=== PATIENT | female | born 1965 | race Caucasian/White ===

== ENCOUNTER 2024-11-18 17:02 | Emergency (ER) | payer MEDICARE, SELFPAY ==
--- NOTE | ~2024-11-18 | CT_ITS ---
EXAMINATION: CT abdomen pelvis w con DATE: 11/18/2024 22:48 INDICATION: abd pain, hx of diverticulitis TECHNIQUE: Computed tomography (CT) of the abdomen and pelvis was performed with 100 mL Omnipaque-350 intravenous contrast. Automated exposure control and iterative reconstruction technique were employe d. The dose-length product was 266.20 mGy-cm. COMPARISON: None. FINDINGS: Lower thorax: Subpleural air cysts and reticular opacities. Bibasilar scarring. Mild coronary artery calcification. Liver: Simple left lobe cyst. Additional subcentimeter hypodensities, too small to characterize but l ikely represent cysts or hemangiomas.. Biliary/Gallbladder: Gallbladder is absent. Mild extra hepatic duct dilation likely secondary to chol ecystectomy. Pancreas: No mass or duct dilation. Spleen: Normal. Adrenals:No mass. Kidneys: No suspicious mass, obstructing stone, or hydronephrosis. Simple cysts and subcentimeter hyp odensities that are too small to characterize but most likely represent cysts. GI tract: Mild distal esophageal and antral wall edema. No small or large bowel dilation. Normal appe ndix. Mesentery/Peritoneum: No ascites, mass, or free air. Retroperitoneum: No mass. Atherosclerotic calcifications of intra-abdominal arterial vessels. Pelvis: Normal urinary bladder. Absent uterus. Ovaries not confidently identified.. Soft Tissues: Soft tissues and body wall unremarkable. Bones: No acute osseous finding. IMPRESSION: Mild emphysematous/interstitial change in the lung bases. Mild esophagitis and antral gastritis. Unremarkable CT abdomen and pelvis findings. Reviewed, dictated and finalized at location K.
[2024-11-18 17:37] VITALS: BP 117/81; PULSE 81; RESP 20; TEMP 36.6; O2SAT 96
--- NOTE | 2024-11-18 21:48 | ED_ITS ---
HPI - Abdominal Pain General Chief Complaint: Abdominal Pain <Abdi Arcenio Beltre III, DO - Last Filed: 11/27/24 13:39> Stated Complaint: abd pain <Abdi Arcenio Beltre III, DO - Last Filed: 11/27/24 13:39> Time Seen by Provider: 11/18/24 21:41 <Abdi Acrenio Beltre III, DO - Last Filed: 11/27/24 13:39> History of Present Illness HPI narrative: Pt presents with intermittent LLQ abdominal pain for 3 years but getting more frequent and more severe for last 3 months. Pt also complains of rovign pain intermittently in knees and legs. Pt denies CP or SOB. Pt had hysterectomy and oophorectomy years ago due to having cancerous cells (not sure if uterus or ovaries). Pt denies urinary symptoms. <Abdi Arcenio Beltre III, DO - Last Filed: 11/27/24 13:39> Related Data Allergies/Adverse Reactions: Allergies Allergy/AdvReac Type Severity Reaction Status Date / Time adhesive tape Allergy Rash Verified 11/18/24 17:43 <Abdi Arcenio Beltre III, DO - Last Filed: 11/27/24 13:39> Review of Systems 2 Review of Systems: All systems reviewed & are unremarkable except as noted in HPI and below <Abdi Arcenio Beltre III, DO - Last Filed: 11/27/24 13:39> Exam 2 Const: General: healthy appearing and no acute distress <Abdi Arcenio Beltre III, DO - Last Filed: 11/27/24 13:39> Nutritional Appearance: well nourished <Abdi Arcenio Beltre III, DO - Last Filed: 11/27/24 13:39> Orientation/consciousness: patient oriented x3 <Abdi Arcenio Beltre III, DO - Last Filed: 11/27/24 13:39> Limitations: no limitations <Abdi Arcenio Beltre III, DO - Last Filed: 11/27/24 13:39> Resp: Effort & Inspection: normal respiratory effort <Abdi Arcenio Beltre III, DO - Last Filed: 11/27/24 13:39> Auscultation: clear to auscultation bilaterally <Abdi Arcenio Beltre III, DO - Last Filed: 11/27/24 13:39> Cardio: Rate: regular rate <Abdi Arcenio Beltre III, DO - Last Filed: 11/27/24 13:39> Rhythm: regular rhythm <Abdi Arcenio Beltre III, DO - Last Filed: 11/27/24 13:39> GI: GI Palp: Yes Soft to palpation and Yes Tenderness to palpation present (GI) (llq mild no mass) <Abdi Arcenio Beltre III, DO - Last Filed: 11/27/24 13:39> Auscultation: normal bowel sounds <Abdi Arcenio Beltre III, DO - Last Filed: 11/27/24 13:39> Back/Spine/Pelvis: Back: no CVA tenderness <Abdi Arcenio Beltre III, DO - Last Filed: 11/27/24 13:39> Skin: General skin exam: normal color <Abdi Arcenio Beltre III, DO - Last Filed: 11/27/24 13:39> Rashes: no rashes <Abdi Arcenio Beltre III, DO - Last Filed: 11/27/24 13:39> Wounds: no wounds <Abdi Arcenio Beltre III, DO - Last Filed: 11/27/24 13:39> Neuro: General: patient oriented x3, moves all extremities and no focal motor deficits <Abdi Arcenio Beltre III, DO - Last Filed: 11/27/24 13:39> Speech: normal speech <Abdi Arcenio Beltre III, DO - Last Filed: 11/27/24 13:39> Extrem: General: normal to inspection and no clubbing, cyanosis or edema < Abdi Arcenio Beltre III, DO - Last Filed: 11/27/24 13:39> Psych: Mental Status: mental status grossly normal <Abdi Arcenio Beltre III, DO - Last Filed: 11/27/24 13:39> Affect: normal affect <Abdi Arcenio Beltre III, DO - Last Filed: 11/27/24 13:39> Attitude: cooperative <Abdi Arcenio Beltre III, DO - Last Filed: 11/27/24 13:39> Course Vital Signs Vital signs: Vital Signs Temperature 97.9 F 11/18/24 17:37 Pulse Rate 81 11/18/24 17:37 Respiratory Rate 20 11/18/24 17:37 Blood Pressure 117/81 11/18/24 17:37 Pulse Oximetry 96 11/18/24 17:37 Oxygen Delivery Room Air 11/18/24 17:37 Temperature 97.9 F 11/18/24 17:37 Pulse Rate 76 11/18/24 23:38 Respiratory Rate 17 11/18/24 23:38 Blood Pressure 122/83 11/18/24 23:38 Pulse Oximetry 98 11/18/24 23:38 Oxygen Delivery Room Air 11/18/24 17:37 <Abdi Beltre III, DO - Last Filed: 11/27/24 13:39> Vital Signs Temperature 97.9 F 11/18/24 17:37 Pulse Rate 81 11/18/24 17:37 Respiratory Rate 20 11/18/24 17:37 Blood Pressure 117/81 11/18/24 17:37 Pulse Oximetry 96 11/18/24 17:37 Oxygen Delivery Room Air 11/18/24 17:37 Temperature 97.9 F 11/18/24 17:37 Pulse Rate 76 11/18/24 23:38 Respiratory Rate 17 11/18/24 23:38 Blood Pressure 122/83 11/18/24 23:38 Pulse Oximetry 98 11/18/24 23:38 Oxygen Delivery Room Air 11/18/24 17:37 <Roly Oates MD - Last Filed: 11/18/24 23:19> MDM - Abdominal Pain MDM Narrative Medical decision making narrative: Pt presents with intermittent pain in LLQ for 3 years but worse and more frequent last 3 months. Pt has hysterectomy and b/l oophorectomy years ago for cancerous cells and is worried about recurrence. will get labs, ua, and CT abd and pelvis to rule out cancer among other things. will turn over to Dr Oates at 2200 awaiting work up. <Abdi Beltre III, DO - Last Filed: 11/27/24 13:39> Pt presents with intermittent pain in LLQ for 3 years but worse and more frequent last 3 months. Pt has hysterectomy and b/l oophorectomy years ago for cancerous cells and is worried about recurrence. will get labs, ua, and CT abd and pelvis to rule out cancer among other things. will turn over to Dr Oates at 2200 awaiting work up. Patient was signed out to me by Dr. Beltre pending CT abdomen pelvis with IV contrast. Patient's blood work did not reveal any acute process. Urinalysis revealed 4+ bacteria and 6-10 white blood cells however patient denies any urinary symptoms therefore will not be treating this patient is asymptomatic bacteria. CT abdomen and pelvis was obtained and revealed esophagitis/gastritis otherwise no acute process. Patient does admit to history of acid reflux. She was informed that she will be provided with a GI referral and instructed to call to set up a follow-up appointment. Provided with strict return precautions and instructed return to the ED if any new or worsening symptoms develop. She was discharged home in stable condition. <Roly Oates MD - Last Filed: 11/18/24 23:19> Differential Diagnosis Differential diagnosis: Likely abdominal pain, constipation, diverticulitis and small bowel obstruction <Abdi Beltre III, DO - Last Filed: 11/27/24 13:39> Lab Data Result diagrams: 11/18/24 22:09 11/18/24 22:09 <Abdi Beltre III, DO - Last Filed: 11/27/24 13:39> Labs: Lab Results 11/18/24 11/18/24 Range/Units 22:09 22:15 WBC 8.7 (4.5-10.0) K/mm3 RBC 5.77 H (4.2-5.4) M/mm3 Hgb 17.2 H (12.0-15.0) g/dL Hct 51.4 H (37.0-47.0) % MCV 89.1 (80-100) fl MCH 29.8 (26-34) pg MCHC 33.5 (32-36) g/dl RDW 12.6 (11.5-14.5) % Plt Count 268 (150-375) k/mm3 MPV 11.0 H (7.4-10.4) fl Immature Gran % (Auto) 0.3 (0-0.5) % Neut % (Auto) 57.9 (45.5-73.1) % Lymph % (Auto) 31.3 (18.3-44.2) % [place] % (Auto) 8.4 (2.6-8.5) % Eos % (Auto) 1.5 (0-4.4) % Baso % (Auto) 0.6 (0.2-1.2) % Lymph # (Auto) 2.71 (0.9-3.2) K/mm3 [place] # (Auto) 0.7 H (0.1-0.6) K/mm3 Eos # (Auto) 0.1 (0-0.3) K/mm3 Baso # (Auto) 0.1 (0.0-0.1) K/mm3 Abs Immat Gran (auto) 0.03 (0.00-0.031) K/mm3 Absolute Neuts (auto) 5.0 (1.3-6.7) K/mm3 Absolute Nucleated RBC 0.000 (0.0-0.012) K/mm3 Nucleated RBC % 0.0 (0.0-0.2) % Sodium 138 (137-145) mmol/L Potassium 4.7 (3.4-5.0) mmol/L Chloride 105 (98-107) mmol/L Carbon Dioxide 20 L (22-30) mmol/L Anion Gap 13 H (4-12) mmol/L BUN 12 (7-17) mg/dL Creatinine 0.68 L (0.7-1.0) mg/dL Estim Creat Clear Calc 73 ml/min Estimated GFR > 60 (59 - ) Glucose 81 (65-110) mg/dL Calcium 10.2 (8.4-10.2) mg/dL Magnesium 2.2 (1.6-2.3) mg/dL Total Bilirubin 0.8 (0.2-1.3) mg/dL AST 31 (14-36) U/L ALT 23 (6-35) U/L Alkaline Phosphatase 107 (38-126) U/L Total Protein 7.7 (6.3-8.2) g/dL Albumin 4.8 (3.5-5.1) g/dL Lipase 73 (23-300) U/L Urine Color Yellow (Yellow) Urine Appearance Cloudy H (Clear) Urine pH 7.0 (5.0-9.0) Ur Specific [place] 1.016 (1.001-1.035) Urine Protein Negative (Negative) mg/dL Urine Glucose (UA) Negative (Negative) mg/dL Urine Ketones Negative (Negative) mg/dL Ur Blood (Man) Negative (Negative) Urine Nitrate Negative (Negative) Urine Bilirubin Negative (Negative) Urine Urobilinogen 1.0 (<2.0) mg/dL Leukocyte Esterase Rfl Trace H (Negative) NICOLE/UL Urine RBC 0-2 (0-2) /hpf Urine WBC 6-10 H (0-3) /hpf Ur Squamous Epith Cells Moderate (Few) /hpf Urine Bacteria 4+ H /hpf Urine Casts 0-2 POC Urine HCG, Qual Negative (Negative) <Abdi Arcenio Hwangver III, DO - Last Filed: 11/27/24 13:39> Lab Results 11/18/24 11/18/24 Range/Units 22:09 22:15 WBC 8.7 (4.5-10.0) K/mm3 RBC 5.77 H (4.2-5.4) M/mm3 Hgb 17.2 H (12.0-15.0) g/dL Hct 51.4 H (37.0-47.0) % MCV 89.1 (80-100) fl MCH 29.8 (26-34) pg MCHC 33.5 (32-36) g/dl RDW 12.6 (11.5-14.5) % Plt Count 268 (150-375) k/mm3 MPV 11.0 H (7.4-10.4) fl Immature Gran % (Auto) 0.3 (0-0.5) % Neut % (Auto) 57.9 (45.5-73.1) % Lymph % (Auto) 31.3 (18.3-44.2) % [place] % (Auto) 8.4 (2.6-8.5) % Eos % (Auto) 1.5 (0-4.4) % Baso % (Auto) 0.6 (0.2-1.2) % Lymph # (Auto) 2.71 (0.9-3.2) K/mm3 [place] # (Auto) 0.7 H (0.1-0.6) K/mm3 Eos # (Auto) 0.1 (0-0.3) K/mm3 Baso # (Auto) 0.1 (0.0-0.1) K/mm3 Abs Immat Gran (auto) 0.03 (0.00-0.031) K/mm3 Absolute Neuts (auto) 5.0 (1.3-6.7) K/mm3 Absolute Nucleated RBC 0.000 (0.0-0.012) K/mm3 Nucleated RBC % 0.0 (0.0-0.2) % Sodium 138 (137-145) mmol/L Potassium 4.7 (3.4-5.0) mmol/L Chloride 105 (98-107) mmol/L Carbon Dioxide 20 L (22-30) mmol/L Anion Gap 13 H (4-12) mmol/L BUN 12 (7-17) mg/dL Creatinine 0.68 L (0.7-1.0) mg/dL Estim Creat Clear Calc 73 ml/min Estimated GFR > 60 (59 - ) Glucose 81 (65-110) mg/dL Calcium 10.2 (8.4-10.2) mg/dL Magnesium 2.2 (1.6-2.3) mg/dL Total Bilirubin 0.8 (0.2-1.3) mg/dL AST 31 (14-36) U/L ALT 23 (6-35) U/L Alkaline Phosphatase 107 (38-126) U/L Total Protein 7.7 (6.3-8.2) g/dL Albumin 4.8 (3.5-5.1) g/dL Lipase 73 (23-300) U/L Urine Color Yellow (Yellow) Urine Appearance Cloudy H (Clear) Urine pH 7.0 (5.0-9.0) Ur Specific [place] 1.016 (1.001-1.035) Urine Protein Negative (Negative) mg/dL Urine Glucose (UA) Negative (Negative) mg/dL Urine Ketones Negative (Negative) mg/dL Ur Blood (Man) Negative (Negative) Urine Nitrate Negative (Negative) Urine Bilirubin Negative (Negative) Urine Urobilinogen 1.0 (<2.0) mg/dL Leukocyte Esterase Rfl Trace H (Negative) NICOLE/UL Urine RBC 0-2 (0-2) /hpf Urine WBC 6-10 H (0-3) /hpf Ur Squamous Epith Cells Moderate (Few) /hpf Urine Bacteria 4+ H /hpf Urine Casts 0-2 POC Urine HCG, Qual Negative (Negative) <Roly Oates MD - Last Filed: 11/18/24 23:19> Imaging Data Radiologist's impression: ITS Impressions Abdomen/Pelvis CT 11/18/24 22:49 IMPRESSION: Mild emphysematous/interstitial change in the lung bases. Mild esophagitis and antral gastritis. Unremarkable CT abdomen and pelvis findings. <Abdi Arcenio Beltre III, DO - Last Filed: 11/27/24 13:39> ITS Impressions Abdomen/Pelvis CT 11/18/24 22:49 IMPRESSION: Mild emphysematous/interstitial change in the lung bases. Mild esophagitis and antral gastritis. Unremarkable CT abdomen and pelvis findings. <Roly Oates MD - Last Filed: 11/18/24 23:19> Discharge Plan Discharge Clinical Impression: Abdominal pain <Abdi Arcenio Beltre III, DO - Last Filed: 11/27/24 13:39> Patient Disposition: Home <Abdi Arcenio Beltre III, DO - Last Filed: 11/27/24 13:39> Condition: Improved <Abdi Arcenio Beltre III, DO - Last Filed: 11/27/24 13:39> Instructions: Antibiotic Form <Abdi Arcenio Beltre III, DO - Last Filed: 11/27/24 13:39> Additional Instructions: Please follow-up with the GI doctor you were provided with today within the next 3-5 days. Return to the ED if any new or worsening symptoms develop. <Abdi Arcenio Beltre III, DO - Last Filed: 11/27/24 13:39> Patient Language: Upper Sorbian <Abdi Arcenio Beltre III, DO - Last Filed: 11/27/24 13:39> Follow-up/Referrals: Stephany,MD Damien [Primary Care Provider] - Felice Marshall MD [Physician] - 3 Days <Abdi Arcenio Beltre III, DO - Last Filed: 11/27/24 13:39> Time of Disposition: 23:16 <Abdi Arcenio Beltre III, DO - Last Filed: 11/27/24 13:39> 23:16 <Roly Oates MD - Last Filed: 11/18/24 23:19>
[2024-11-18 22:17] LABS: BEDSIDEPREGUCG Negative (Negative)
[2024-11-18 22:18] LABS: Hematocrit 51.4 % (37.0-47.0); Hemoglobin 17.2 g/dL (12.0-15.0); Immature Granulocyte Percent A 0.3 % (0-0.5); Lymphocytes Absolute Auto 2.71 K/mm3 (0.9-3.2); Mean Corpuscular HGB Conc 33.5 g/dl (32-36); Mean Corpuscular Hemoglobin 29.8 pg (26-34); Mean Corpuscular Volume 89.1 fl (80-100); Nucleated Red Blood Cells Absolute Auto 0.000 K/mm3 (0.0-0.012); Nucleated Red Blood Cells Perc 0.0 % (0.0-0.2); Platelet Count Result 268 k/mm3 (150-375); Red Blood Count 5.77 M/mm3 (4.2-5.4); White Blood Count 8.7 K/mm3 (4.5-10.0)
--- OUTSIDE RECORDS SUMMARY | 2024-11-18 22:18 | XMS_ITS | Data Portability ---
Author Organization [facility] [employer], Main Office Address [address] [place] [address] Assessment No assessment recorded. Plan of Treatment Reminders Order Date Submit Date Provider Last Modified By Organization Details Last Modified Time Details Appointments Any 15 2024 09:30A M Damien glavin MD Not available Not available Not available Lab lipid panel, serum [address] (Lab), [address] [place], [address], 11/12/2024 10:58:21 CBC w/ auto diff [address] (Lab), [address] [place], [address], 11/12/2024 10:58:33 TSH, serum or plasma [address] (Lab), [address] [place], [address], 11/12/2024 10:58:42 CMP, serum or plasma [address] (Lab), [address] [place], [address], 11/12/2024 10:58:51 vitamin D, 25-hydrox y, total, serum [address] (Lab), [address] [place], [address], 11/12/2024 10:58:59 Referral orthopedi c surgeon referral - Please call patient to schedule an appointme nt. Thank you. 2024 025 [email or web address] Heber Krishna MD, [address] [facility], [place], [address], 11/05/2024 17:23:10 podiatris t referral - Please call patient to schedule an appointme nt. Thank you. 2024 025 [email or web address] Byrd DPM, [address], [address], [place], [address], 11/06/2024 08:20:40 pulmonolo gist referral - Please call patient to schedule an appointme nt. Thank you. 2024 025 [email or web address] Hua Holden MD, [address] [facility], [place], [address], 11/11/2024 09:51:58 gynecolog ist referral - Please call patient to schedule an appointme nt. Thank you. 2024 025 MIGEL Rudolph MD, [address] [facility] [address], [address], [place], [address], 11/05/2024 17:25:44 Procedures colonosco py screening (PROC) - Please call patient to schedule an appointme nt. Thank you. 2024 025 MIGEL Patrick MD, [address], [address], [place], [address], 11/11/2024 09:53:25 Surgeries None recorded. Imaging MAMMO, screening , digital, bilateral - Please call patient to schedule. 2024 025 [facility], [address], [address], [place], [address], 11/04/2024 14:25:56 DEXA, axial skeleton - Please call patient to schedule. 2024 025 [facility], [address], [address], [place], [address], 11/04/2024 14:27:48 LDCT, chest, for lung cancer screening - Please call patient to schedule. 2024 025 [email or web address] [facility], [address], [address], [place], [address], 11/04/2024 14:31:36 Medication Orders albuterol sulf 90 mcg/actua tion breath activated powder inhaler,s ensor 2024 025 [email or web address] [id number], [address] , [place], [place], [id number], 11/12/2024 17:08:50 Patient TargetsNo targets recorded. Patient InstructionsNo instructions recorded. 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 Thank you. Referring Physician: Damien Hammond, Internal Medicine, Encounter Date: 11/04/2024 Mitochondrial Disorders Counselor Referral for C hronic obstructive pulmonary disease Please call patient to schedule an appointment. Thank you. Referring Physician: Damien Hammond, Internal Medicine, Encounter Date: 11/04/2024 Orthopedic Surgeon Referral for Pain of hip region Please call patient to schedule an appointment. Thank you. Referring Physician: Damien Hammond, Internal Medicine, Encounter Date: 11/04/2024 Parts Salesperson Referral for Pain of left heel Please call patient to schedule an appointment. Thank you. Referring Physician: Damien Hammond, Internal Medicine, Encounter Date: 11/04/2024 Problems Name Problem SNOMED Code Status Onset Date Resolution Date Notes Provider Name and Address Organization Details Recorded Time Vitamin D below reference range 807242761 Active 2024 Damien galvin MD [address] [place], [place] [address], [address], [place], [address], [employer] [facility] 11:48:09 Cigarette smoker 63749000 Active 2024 Damien galvin MD [address], [address], [place], [address], [employer] [facility] 10:14:45 Chronic obstructive pulmonary disease 04827861 Active 2024 Damien galvin MD [address], [address], [place], [address], [employer] [facility] [employer] [facility] 10:15:05 Pain of hip region 07012760 Active 2024 Damien galvin MD [address], [address], [place], [address], [employer] [facility] [facility] 10:30:14 Pain of left heel 2885043918362 109 Active 2024 Damien galvin MD [address], [address], [place], [address], [employer] [facility] [facility] 10:30:43 Problem Notes None recorded. Procedures Surgical History Date Name Laterality Status Provider Name and Address Organization Details Recorded Time Brain Surgery completed CYRIL Angulo Cesar [facility] 11/04/2024 10:04:48 dilation and curettage completed CYRIL Angulo Cesar [facility] 11/04/2024 10:05:14 section completed CYRIL Angulo Cesar [facility] 11/04/2024 10:05:27 operation on stomach completed CYRIL Angulo Cesar [facility] 11/04/2024 10:05:50 hysterectomy completed CYRIL Angulo Cesar [facility] 11/04/2024 10:06:30 Imaging Results None recorded. Procedure Notes None recorded. Medical Equipment None Reported. Allergies Allergen ID Allergen Name Allergen Category Reaction Reaction Severity Criticality Documentation Date Start Date Code Code System Note Provider Name and Address Organization Details Recorded Time 50963 adhesive tape environme nt,medica tion rash moderate low 11/04/2024 75181 UNK CYRIL Angulo [employer] [facility] [employer] 09:59:45 Medications Name Sig Start Date Stop Date Status Note LastModified by Organization Details LastModified Time albuterol sulfate 90 mcg/actuat ion breath activated powder inhaler Inhale 2 puffs every 4 hours by inhalation route as needed 2024 active Not Available Not Available Not Avai lable albuterol sulf 90 mcg/actuat ion breath activated powder inhaler,se nsor Inhale 2 puffs every 4 hours by inhalation route as needed for 90 days. 11/12 completed Not Available Not Available Not Available Vitals Date Recorded Body height Body mass index (BMI) Body weight Body temperature Heart rate Oxygen saturation Oxygen saturation in Arterial blood by Pulse oximetry Systolic And Diastolic Provider Name and Address Organization Details Last Updated DateTime 5 167.64 cm 20.7 kg/m2 01118.8 2 g 97.5 [degF] 95 /min 96 % 96 % 118/80 mm[Hg] Roxanna Campbell MA [employer] 09:57:35 Social History Question Answer Notes LastModified by Organizat [employer] Details LastModified Time Tobacco Smoking Status Current Every Day Smoker CYRIL Angulo [employer] 11/04/2024 10:03:16 What Is Your Level Of Caffeine Consumption? Heavy Information not available 11/04/2024 In The 14 Days Before Symptom Onset, Have You Had Close Contact With A Laboratory-confi rmed COVID-19 While That Case Was Ill? No Information not available 11/04/2024 In The 14 Days Before Symptom Onset, Have You Had Close Contact With A Person Who Is Under Investigation For COVID-19 While That Person Was Ill? No Information not available 11/04/2024 What Type Of Diet Are You Following? REGULAR Information not available 11/04/2024 Have There Been Any Changes To Your Family Or Social Situation? No Information not available 11/04/2024 Do You Use Insect Repellent Routinely? No Information not available 11/04/2024 Where Do You Live? [facility] Information not available 11/04/2024 What Was The Date Of Your Most Recent Tobacco Screening? 11/04/2024 Information not available 11/04/2024 How Many Children Do You Have? 2 Information not available 11/04/2024 What Is Your Current Pack Years? 10-19packyears Information not available 11/04/2024 Do You Have Any Pets? Yes Information not available 11/04/2024 What Is Your Relationship Status? Information not available 11/04/2024 Do You Use Your Seat Belt Or Car Seat Routinely? Yes Information not available 11/04/2024 Do You Have Smoke And Carbon Monoxide Detectors In Your Home? Yes Information not available 11/04/2024 At What Age Did You Start Smoking Tobacco? 13 Information not available 11/04/2024 Are You Passively Exposed To Smoke? Yes Information not available 11/04/2024 Are There Any Smokers In Your House? Yes Information not available 11/04/2024 How Much Tobacco Do You Smoke? 0.25 PPD Information not available 11/04/2024 Do You Use Sunscreen Routinely? No Information not available 11/04/2024 How Many Years Have You Smoked Tobacco? 46 Information not available 11/04/2024 Have You Recently Traveled Abroad? No Information not available 11/04/2024 Do You Have Any Dietary Restrictions? No Information not available 11/04/2024 Sex: Unknown Functional Status Question Answer Note LastModified by Organizat ion Details LastModified Time Do you use any illicit or recreational drugs? No Information not available 11/04/2024 Do you or have you ever used any other forms of tobacco or nicotine? No Information not available 11/04/2024 What is your level of alcohol consumption? None Information not available 11/04/2024 Are you currently employed? No disabled Information not available 11/04/2024 What is your exercise level? Moderate Information not available 11/04/2024 Mental Status Question Answer Note LastModified by Organization D etails LastModified Time Do you feel stressed (tense, restless, nervous, or anxious, or unable to sleep at night)? [id number] Information not available 11/04/2024 Family History Relationship Description Onset Age of this Age Resolved Age Notes LastModified by Organization Details LastModified Time Mother Malignant lymphoma [email or web address] Not available 2024 10:00:47 Brother Hypertensive disorder [email or web address] Not available 2024 10:01:04 Sister Hypertensive disorder [email or web address] Not available 2024 10:01:10 Sister Malignant neoplasm of bone [email or web address] Not available 2024 10:01:21 Sister Malignant neoplasm of lung [email or web address] Not available 2024 10:01:33 Sister Malignant neoplasm of brain [email or web address] Not available 2024 10:01:46 Father Diabetes mellitus [email or web address] Not available 2024 10:01:57 Father Hypertensive disorder [email or web address] Not available 2024 10:02:07 Medical History No medical history recorded. Gynecological History Statement/Question Response How many live births 2 Date of Last Colonoscopy Date of Last Mammogram Date of LMP Most Recent Bone Density Date of Last Pap Current Control Method Hysterectom y Obstetrics History GPAL:G 4 P 2 0 2 2 Type Value Multiple Births 0 Full Term 2 Induced 0 Spontaneous 2 Premature 0 Living 2 Ectopics 0 Total 4 Past Encounters Encounter ID Performer Location Encounter Start Date Encounter Closed Date Diagnosis/Indication Diagnosis SNOMED-CT Code Diagnosis ICD10 Code Diagnosis Note [id number] Damien esposito MD [facility] [address] [place] [address] 11/04/2024 09:48:21 11/04/2024 10:38:52 Screening due 601551332 Z13.9 C-scope: get this done Mammogram: get this doneDEXA: Get this doneWWE: Get this one Get yearly flu shot, can do Tdap if not done, can do Shingrix vaccineCan do prevnar #20 RTC in 3 months, do labs, ER if worse, she is very appreciati ve to this plan of care Screening for malignant neoplasm of colon 132537583 Z12.11 Screening mammography 24 119335 Z12.31 Postmenopausal state 764 99606 Z78.0 Well woman health examination 182194612 Z01.419 Hyperlipid emia screening 242261395 Z13.220 Get labs Vitamin D below reference range 332046351 R79.89 Cigarette smoker 8277900 7 F17.210 Advised to quit! counselled on risks for smokingGet LDCTShe does c/o occasional SOB and TUCKER Chronic ob structive pulmonary disease 11961045 J44.9 On albuterol as neededHx of smokingAdv ised to quit!Agree able to see pulmonary Pain of hip region 07255 002 M25.552 Needs to see ortho Pain of left heel 518432 3542 824036 M79.672 Get a referral to podiatry Health Concerns Section Related Observation LastModified by Organization Detai ls LastModified Time None Recorded Concern Status LastModified by Organization Details LastModified Time None Recorded Advance Directives Directive None Recorded Payers Insurance Date Sequence Insurance Name Policy Number Policy Zhang Covered Member ID Zhang Member ID Guarantor Name 11/06/2024 1 [facility] (MEDICARE REPLACEMENT/A DVANTAGE - HMO) [id number] Lexis Velazco [id number] Lexis Velazco Notes Date Note Type Note Provider Name and Address Organization Details Recorded Time 11/04/2024 text/html OV 11/04/2024: Here to establish care Present Hx:COPDSmokingL hip pain that radiates into the L back and L lower groin area Here to discuss above and to also get labs Damien Hammond MD [address] [facility], [facility] [address], [place], [address], [place] [facility] [employer] 11/04/2024 10:56:33 OBGyn Episode No OBEpisode recorded.
--- OUTSIDE RECORDS SUMMARY | 2024-11-18 22:18 | XMS_ITS | Continuity of Care Document ---
Author Organization [facility] Address [address] [facility] [address] [place] [address] Phone Care Team Providers Care Clinical Program Director Name Role Phone Shreyas FREEMAN MD, Donovan Unavailable Unavailab le Advance Directives Directive Yes / No Effective Date File Name No Information Encounters Encounter Description Practice Location Reason(s) For Visit Diagnoses Date Provider Providers Copied on Encounter [facility], [address] [facility] [address], [place], [place], [id number], [place] tel:[phone] [facility] No Information 3 Shreyas Man. [address] [facility], [address], [place], [place], [id number] , [place]. tel: [phone] Family History Family Member Type Diagnosis Age [...]
--- OUTSIDE RECORDS SUMMARY | 2024-11-18 22:18 | XMS_ITS | Patient Health Record ---
Author Organization [facility] ie Address [address] [facility] [address] [place], [place] [id number] Support Name Relationship Address Phone Lexis Velazco Guarantor Unknown [phone] Allergies No Known Allergies Reason For Referral No Information Social History Tobacco Use: Social History Observation Description Date Details (start date - stop date) Current Smoker 09/06/1989 - NA Tobacco Use/Smoking Question Answer Notes Tobacco use: current smoker When did you start smoking? 09/06/1989 How often do you smoke cigarettes? every day How many cigarettes a day do you smoke? 11-20 How soon after you wake up do you smoke your fir st cigarette? 6-30 minutes Are you interested in quitting? Not ready to alma t Alcohol Screen (Audit-C) Question Answer Notes Did you have a drink contain ing alcohol in the past year? Yes How often did you have a dri nk containing alcohol in the past year? 2 to 4 times a month (2 points) How many drinks did you have on a typical day when you were drinking in the past year? 1 or 2 drinks (0 point) How often did you have 6 or more drinks on one occasion in the past year? Never (0 point) Points 2 Interpretation Negative Sexual History Question Answer Notes Had sex in the past 12 months (vaginal, oral, or anal)? Yes with Men only Have you ever had a Sexually transmitted disease ? Yes Herpes? Yes Plan Of Treatment Pending Test Test Name Order Date Urinalysis, Routine 09/06/2021 TSH 09/06/2021 CBC With Differential/Platelet 2 Vitamin D, 25-Hydroxy 09/06/2021 Lipid Panel 09/06/2021 Comp. Metabolic Panel (14) 09/06/2021 HIV 09/06/2021 Insurance Providers Payer Name Payer Address Payer Phone Subscriber Number Group Number Insured Name Patient Relationship to Insured Coverage Start Date Coverage End Date [facility] [address] [place], [place] [id number] Lexis Velazco Self - patient is the insured Medical (General) History Medical History History ICD Code abscess brain-left frontal lobe 2006 hysterectomy 2006 Crohn's disease Seizure history Surgical History Surgery Date(Month/Year) Craniotomy 2006 Hysterectomy 2005- Ovarian Cancer? Hospitalization History Reason Date(Month/Year) as above
[2024-11-18 22:24] LABS: Add Urine Microscopic? YES; Appearance Urine Cloudy (Clear); Glucose Urine UA Negative (Negative); Leukocyte Esterase Ur Trace LEU/UL (Negative); Nitrate Urine Negative (Negative); Non Pathogenic Casts 0-2; Specific Grav Ur 1.016 (1.001-1.035)
[2024-11-18 22:34] LABS: Alanine Aminotransferase 23 U/L (6-35); Albumin Level 4.8 g/dL (3.5-5.1); Alkaline Phosphatase 107 U/L (38-126); Anion Gap 13 mmol/L (4-12); Aspartate Amino Transferase 31 U/L (14-36); Bilirubin,Total 0.8 mg/dL (0.2-1.3); Blood Urea Nitrogen 12 mg/dL (7-17); Calcium 10.2 mg/dL (8.4-10.2); Carbon Dioxide 20 mmol/L (22-30); Chloride 105 mmol/L (98-107); Estimated CRCL calculation 73 ml/min; Estimated Glomerular Filt Rate > 60; Glucose 81 mg/dL (65-110); Lipase 73 U/L (23-300); Magnesium 2.2 mg/dL (1.6-2.3); Potassium 4.7 mmol/L (3.4-5.0); Sodium 138 mmol/L (137-145); Total Protein 7.7 g/dL (6.3-8.2)
[2024-11-18 23:34] VITALS: BP 122/83; PULSE 76; RESP 17; O2SAT 98
[2024-11-18 23:38] VITALS: BP 122/83; PULSE 76; RESP 17; O2SAT 98
== END 2024-11-18 23:40 | disposition home or self-care (01) ==
PROVIDERS: Emergency Provider Emergency Medicine; PCP Internal Medicine
DX: R10.32 Left lower quadrant pain (principal); K21.9 Gastro-esophageal reflux disease without esophagitis; Z90.710 Acquired absence of both cervix and uterus; Z90.722 Acquired absence of ovaries, bilateral; K20.90 Esophagitis, unspecified without bleeding; K29.70 Gastritis, unspecified, without bleeding
CPT/HCPCS: 36415; 74177; 80053; 81001; 81025; 83690; 83735; 85025; 99284; Q9967

== ENCOUNTER 2025-04-15 00:59 | Day surgery (SDC) | payer MEDICARE, SELFPAY ==
--- OUTSIDE RECORDS SUMMARY | 2012-05-22 08:56 | XMS_ITS | Continuity of Care Document ---
Author Organization [facility] Address [address] [place] [address] Phone Care Team Providers Care Arts Education Teacher Name Role Phone Shreyas FREEMAN MD, Donovan Unavailable Unavailab le Advance Directives Directive Yes / No Effective Date File Name No Information Encounters Encounter Description Practice Location Reason(s) For Visit Diagnoses Date Provider Providers Copied on Encounter [facility], [address], [place], [place], [id number], [place] tel:[phone] [facility] No Information [address] [facility]. [address], [address], [place], [place], [id number] , [place]. tel: [phone] Family History Family Member Type Diagnosis Age At Onset No Information Payers Payer name Insurance type Covered democrat ID Authoriza tion(s) No Information Social History Type Description Quantity Date Captured Comments Sex Female Smoking Status No Information Chief Complaint And Reason For Visit No Information Reason For Referral Reason For Referral No Information History Of Present Illness Encounter Date Complaint History Of Prese nt Illness No Information Functional Status Date Functional Assessmen t No Information Instructions Date Instruction Additional Infor mation No Information Assessments Type Assessment Date No Information Patient Care Teams Name Effective Dates (start - stop) Status Members No Information
[2025-03-25 14:22] VITALS: BMI 20.9
--- OUTSIDE RECORDS SUMMARY | 2025-04-15 01:01 | XMS_ITS | Data Portability ---
Author Organization MD - [facility], Main Office Address [address] [place] [address] Care Team Providers Care Stand Up Comedian Name Role Phone DAMIEN HAMMOND Primary Care Provider Assessment Encounter Date Assessment Date Assessment LastModified by Organization Details LastModified Time 03/11/2025 03/11/2025 Anibal ER: 11/18/2024: H/H 17.2/51.4 [email or web address] Not available 03/11/2025 11:04:58 Plan of Treatment Reminders Order Date Submit Date Provider Last Modified By Organization Details Last Modified Time Details Appointments Follow Up 15 2025 03:00P M Damien galvin MD Not available Not available Not available Lab lipid panel, serum 2024 025 [facility] (Lab), [address] [place], [address], 03/12/2025 12:04:35 CBC w/ auto diff 2024 025 [facility] (Lab), [address] [place], [address], 03/12/2025 12:04:35 TSH, serum or plasma 2024 025 [facility] (Lab), [address] [place], [address], 03/12/2025 12:04:35 CMP, serum or plasma 2024 025 [facility] (Lab), [address] [place], [address], 03/12/2025 12:04:35 vitamin D, 25-hydrox y, total, serum 2024 025 [facility] (Lab), [address] [place], [address], 03/12/2025 12:04:35 lipid panel, serum [address] (Lab), [address] [place], [address], 11/12/2024 10:58:21 CBC w/ auto diff 2024 025 [facility] (Lab), [address] [place], [address], 11/19/2024 11:38:10 TSH, serum or plasma [address] (Lab), [address] [place], [address], 11/12/2024 10:58:42 CMP, serum or plasma 2024 025 [facility] (Lab), [address] [place], [address], 11/19/2024 11:38:10 vitamin D, 25-hydrox y, total, serum [address] (Lab), [address] [place], [address], 11/12/2024 10:58:59 Referral pulmonolo gist referral - Please call patient to schedule an appointme nt. Thank you. 2024 025 Hua Holden MD, [address] [place], [address], 03/11/2025 14:26:41 podiatris t referral - Please call patient to schedule an appointme nt. Thank you. 2024 025 [email or web address] Garfield Byrd DPM, [address], [address], [place], [address], 03/11/2025 14:26:42 gynecolog ist referral - Please call patient to schedule an appointme nt. Thank you. 2024 025 [email or web address] Kirstin Rudolph MD, [address] [facility] [address], [address], [place], [address], 03/11/2025 14:26:41 hematolog ist referral 2024 025 MIGEL Chavarria MD, [address], [place], [address], 03/13/2025 12:11:37 orthopedi c surgeon referral - Please call patient to schedule an appointme nt. Thank you. 2024 025 [email or web address] Heber Krishna MD, [address], [address], [place], [address], 03/11/2025 14:26:41 orthopedi c surgeon referral - Please call patient to schedule an appointme nt. Thank you. 2024 025 [email or web address] Heber Krishna MD, [address], [address], [place], [address], 02/03/2025 11:17:21 podiatris t referral - Please call patient to schedule an appointme nt. Thank you. 2024 025 [email or web address] Garfield Byrd DPM, [address], [address], [place], [address], 02/03/2025 11:19:24 pulmonolo gist referral - Please call patient to schedule an appointme nt. Thank you. 2024 025 [email or web address] Hua Holden MD, [address] [place], [address], 02/10/2025 09:08:48 gynecolog ist referral - Please call patient to schedule an appointme nt. Thank you. 2024 025 [email or web address] Kirstin Rudolph MD, [address], [address], [place], [address], 02/03/2025 11:07:27 Procedures upper endoscopy procedure (EGD) (PROC) 2024 025 MIGEL west MD, [address], [address], [place], [address], 03/25/2025 10:31:02 colonosco py screening (PROC) - Please call patient to schedule an appointme nt. Thank you. 2024 025 [email or web address] Felice west MD, [address], [address], [place], [address], 03/25/2025 10:20:20 colonosco py screening (PROC) - Please call patient to schedule an appointme nt. Thank you. 2024 025 [email or web address] Felice west MD, [address], [address], [place], [address], 02/26/2025 08:59:32 Surgeries None recorded. Imaging MAMMO, screening , digital, bilateral - Please call patient to schedule. [address] ([facility]), [address] [place], [address], 03/11/2025 12:18:53 CT, chest, w/o contrast [address] ([facility]), [address] [place], [address], 03/11/2025 12:19:53 DEXA, axial skeleton - Please call patient to schedule. [address] ([facility]), [address], [place], [address], 03/11/2025 12:19:21 MAMMO, screening , digital, bilateral - Please call patient to schedule. [address] [facility], [address], [address], [place], [address], 02/24/2025 17:22:24 DEXA, axial skeleton - Please call patient to schedule. [address], [address], [address], [place], [address], 02/24/2025 17:22:24 Medication Orders albuterol sulf 90 mcg/actua tion breath activated powder inhaler,s ensor 2024 025 [place] [facility], [address] [facility], [place], [place], [id number], 03/11/2025 11:21:09 albuterol sulf 90 mcg/actua tion breath activated powder inhaler,s ensor [email or web address] [facility], [address], [place], [place], [id number], 11/12/2024 17:08:50 Patient TargetsNo targets recorded. Patient Instructions Encounter Date Encounter Id Patient Instructions Last Modified By Organization Details Last Modified Time 03/11/2025 [id number] dementia rating scale-2* [email or web address] Not available 03/12/2025 08:14:24 multi-dimensiona l health assessment questionnaire* [email or web address] Not available 03/12/2025 08:14:17 care plan* [email or web address] Not available 09/2024 08:14:11 advance directiv es: care instructions [email or web address] Not available 03/11/2025 11:20:20 advance care planning: care instructions natacha 2 Not available 03/11/2025 11:20:20 [place] Advance Directives natacha 2 Not available 03/11/2025 11:20:20 Personalized Hea lt Plan and Screening Recommendations Advance Directives - Do you have one? No I recommend consulting with an Animal Health Technician, family member, or friend to assist you. Advance Directives - Do we have your advance directive on file in your health record? No, please bring in a copy at your earliest convenience Primary Prevention/Interven tion (prevents or decreases the chance of common diseases from occurring) Smoking Risk: Smoker Refer to attached smoking cessation handouts Alcohol Misuse Screening: Negative Weight: Appropriate Physical activity: Appropriate physical activity Nutrition: Average Fall Risk (screened today): Intermediate Vaccines Pneumococcal: Recommended today, but you have declined Influenza: Recommended today, but you have declined Chronic Disease Risks Stroke: Low Risk Active diagnosis, Continue current treatment plan Heart Attack: Low risk Active diagnosis, Continue current treatment plan Clogging of the Arteries: Low risk Active diagnosis, Continue current treatment plan Diabetes: Low Risk Active diagnosis, Continue current treatment plan Secondary Prevention/Interven tion (detects treatable diseases before they may cause symptoms, disability, or ) Breast Cancer Screening with mammogram: Ordered Cervical/Uterine/Ov alli Cancer Screening: Recommended today Osteoporosis Screening: Ordered Date Screening Last Performed: Colon Cancer Screening: Colonoscopy Date Screening Last Performed: Eye Disease Screening: Recommended today Dementia Risk: Low Depression Screening: Negative Active diagnosis, Continue current treatment plan [email or web address] Not available 03/11/2025 12:59:47 Reason for Referral 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 Thank you. Referring Physician: Damien Hammond, Internal Medicine, Encounter Date: 11/04/2024 Systems Mgr Referral for C hronic obstructive pulmonary disease Please call patient to schedule an appointment. Thank you. Referring Physician: Damien Hammond, Internal Medicine, Encounter Date: 11/04/2024 Orthopedic Surgeon Referral for Pain of hip region Please call patient to schedule an appointment. Thank you. Referring Physician: Salvador Cornejo Medicine, Encounter Date: 11/04/2024 Wellness Manager Referral for Pain of left heel Please call patient to schedule an appointment. Thank you. Referring Physician: Damien Hammond Internal Medicine, Encounter Date: 11/04/2024 Airplane Flight Attendant Referral for We ll woman health examination Please call patient to schedule an appointment. Thank you. Referring Physician: Damien Hammond Internal Medicine, Encounter Date: 03/11/2025 Systems Mgr Referral for C hronic obstructive pulmonary disease Please call patient to schedule an appointment. Thank you. Referring Physician: Salvador Cornejo Medicine, Encounter Date: 03/11/2025 Orthopedic Surgeon Referral for Pain of hip region Please call patient to schedule an appointment. Thank you. Referring Physician: Salvador Cornejo Medicine, Encounter Date: 03/11/2025 Wellness Manager Referral for Pain of left heel Please call patient to schedule an appointment. Thank you. Referring Physician: Salvador Cornejo Medicine, Encounter Date: 03/11/2025 Ladle Patcher Referral for Er ythrocytosis Referring Physician: Salvador Cornejo Medicine, Encounter Date: 03/11/2025 Results Created Date Observation Date Name Description Value Unit Range Abnormal Flag Note LastModifiedBy Organization Detail LastModifiedTime 11/19/1911/18/2024 imagi ng/di agnos tic resul t No observ ation record ed. [facility] [address], [place], [address], 11/19/2024 00:00:18 01/25/20 25 01/14/2025 CT, chest , w/o contr ast No observ ation record ed. [facility] (Mri, Ct Only) [address] [facility], [place], [address], 01/24/2025 16:02:05 Result Notes None recorded. Problems Name Problem SNOMED Code Status Onset Date Resolution Date Notes Provider Name and Address Organization Details Recorded Time Vitamin D below reference range 286981785 Active 2024 Damien galvin MD [address], [address], [place], [address], BOND 5 11:48:09 Cigarette smoker 22930767 Active 2024 Damien galvin MD [address], [place], [address], BOND 5 10:14:45 Chronic obstructive pulmonary disease 76520904 Active 2024 Damien galvin MD [address], [address], [place], [address], BOND 5 10:15:05 Pain of hip region 85920960 Active 2024 Damien galvin MD [address], [address], [place], [address], BOND 5 10:30:14 Pain of left heel 4990316745707 109 Active 2024 Damien galvin MD [address], [place], [address], BOND 5 10:30:43 Tobacco dependence caused by cigarettes 4606664438144 9107 Active 2024 ANKUSH Foy null, [employer] 5 15:34:50 Pulmonary emphysema 60057039 Active 2024 Damien galvin MD [address], [address], [place], [address], BOND 5 11:09:33 Erythrocyto sis 530300621 Active 2024 Damien galvin MD [address], [address], [place], [address], [facility] 11:10:12 Gastritis 8283342 Active 2024 Damien galvin MD [address], [address], [place], [address], [facility] 11:15:42 Problem Notes None recorded. Procedures Surgical History Date Name Laterality Status Provider Name and Address Organization Details Recorded Time 03/11/20 Medicare Wellness CPT Code, subsequent completed Aneta Rigoberto [facility] [employer] [facility] 03/05/2025 17:58:47 Brain Surgery completed Roxanna Campbell MA [facility] [employer] [facility] 11/04/2024 10:04:48 dilation and curettage completed Roxanna Campbell MA [facility] [employer] [facility] 11/04/2024 10:05:14 section completed Roxanna Campbell MA [facility] [employer] [facility] 11/04/2024 10:05:27 operation on stomach completed Roxanna Campbell MA [facility] [employer] [facility] 11/04/2024 10:05:50 hysterectomy completed Roxanna Campbell MA [facility] [employer] [facility] 11/04/2024 10:06:30 Imaging Results None recorded. Procedure Notes None recorded. Medical Equipment None Reported. Allergies Allergen ID Allergen Name Allergen Category Reaction Reaction Severity Criticality Documentation Date Start Date Code Code System Note Provider Name and Address Organization Details Recorded Time 13367 adhesive tape environme nt,medica tion rash moderate low 11/04/2024 Roxanna Campbell MA null, [facility] [employer] [facility] 09:59:45 31205 metoclopr amide Not available Not available Not available Not available 03/26/20252010 6915 RxNorm dysto mayra Not Available polo - External Data [employer] - prod 12:10:49 48916 tramadol medicatio n Not available Not available high 03/26/2025 07/22/ 2011 81699 RxNorm Not Available polo - External Data Service - prod 12:10:49 Medications Name Sig Start Date Stop Date Status Note LastModified by Organization Details LastModified Time lorazepam 0.5 mg tablet TAKE 1 TABLET BY MOUTH DAILY 1 HOUR BEFORE MRI FOR 1 DAY 03/11 completed Not Available Not Available Not Available albuterol sulfate 90 mcg/actuat ion breath activated powder inhaler Inhale 2 puffs every 4 hours by inhalation route as needed 2024 active Not Available Not Available Not Avai lable albuterol sulf 90 mcg/actuat ion breath activated powder inhaler,se nsor Inhale 2 puffs every 4 hours by inhalation route as needed for 90 days. 2024 active Not Available Not Available Not Avai lable Vitals Date Recorded Body height Body mass index (BMI) Body weight Body temperature Heart rate Oxygen saturation Pain severity - 0-10 verbal numeric rating [Score] - Reported Systolic And Diastolic Provider Name and Address Organization Details Last Updated DateTime 167.64 cm 20.7 kg/m2 39129.8 2 g 97.5 [degF] 95 /min 96 % 8 118/80 mm[Hg] Roxanna Campbell MA [employer] 09:57:35 Date Recorded Body height Body mass index (BMI) Body weight Body temperature Respiratory rate Oxygen saturation Heart rate Systolic And Diastolic Provider Name and Address Organization Details Last Updated DateTime 167.64 cm 20.8 kg/m2 38440.4 2 g 96.8 [degF] 18 /min 98 % 108 /min 150/80 mm[Hg] Aneta Rigoberto [employer] 11:06:33 Social History Question Answer Notes LastModified by Storitz Details LastModified Time Tobacco Smoking Status Current Every Day Smoker Roxanna Campbell MA [facility], [employer] 11/04/2024 10:03:16 What Is Your Level Of [...] not available 11/04/2024 Where Do You Live? [facility] Information not available 11/04/2024 What Was The Date Of Your Most Recent Tobacco Screening? 11/04/2024 Information not available 11/04/2024 How Many Children Do You Have? 2 Information not available 11/04/2024 What Is Your Current Pack Years? 10-19packyears [email or web address] Information not available 11/04/2024 Do You Have [...] Many Years Have You Smoked Tobacco? 46 [email or web address] Information not available 11/04/2024 Have You Recently [...] anxious, or unable to sleep at night)? [id number] Information not available 11/04/2024 Family History Relationship [...] Diagnosis SNOMED-CT Code Diagnosis ICD10 Code Diagnosis IMO Codes Diagnosis Note [id number] Damien esposito MD [facility] Cristóbal saldivar [address] [facility] [address] [place] [address] 11/04/2024 09:48:21 11/04/2024 10:38:52 Screening due 623410696 Z13.9 81908189 C-scope: get this done Mammogram: get this doneDEXA: Get this doneWWE: Get this one Get yearly flu shot, can do Tdap if not done, can do Shingrix vaccineCan do prevnar #20 RTC in 3 months, do labs, ER if worse, she is very appreciati ve to this plan of care Screening for malignant neoplasm of colon 078866094 Z12.11 775746 Screening mammography 24 337083 Z12.31 56461713 Postmenopausal state 764 97365 Z78.0 270113 Well woman health examination 185322682 Z01.419 355633 Hyperlipid emia screening 932802323 Z13.220 638051 Get labs Vitamin D below reference range 172997269 R79.89 47209354 Cigarette smoker 0503339 7 F17.210 297077 Advised to quit! counselled on risks for smokingGet LDCTShe does c/o occasional SOB and TUCKER Chronic ob structive pulmonary disease 81568945 J44.9 930357039 On albuterol as neededHx of smokingAdv ised to quit!Agree able to see pulmonary Pain of hip region 52848 002 M25.552 515645 Needs to see ortho Pain of left heel 710186 2961 045079 M79.672 13666175 Get a referral to podiatry [id number] MD [facility] [address] [facility], [address] [place] [address] 03/11/2025 10:29:20 03/11/2025 11:28:49 Adult health examination 033701416 Z00.00 Screening for disorder 228890745 Z13.9 Screening due 710714570 Z13.9 77592364 C-scope: get this done Mammogram: get this doneDEXA: Get this doneWWE: Get this one Get yearly flu shot, can do Tdap if not done, can do Shingrix vaccineCan do prevnar #20 RTC in 3 months, do labs, ER if worse, she is very appreciati ve to this plan of care Screening for malignant neoplasm of colon 294105647 Z12.11 532004 Screening mammography 24 411846 Z12.31 68457218 Postmenopausal state 764 04710 Z78.0 034199 Well woman health examination 224189523 Z01.419 275807 Hyperlipid emia screening 341150988 Z13.220 896105 Get labs Vitamin D below reference range 634315619 R79.89 60957033 Cigarette smoker 7862968 7 F17.210 984997 Advised to quit! counselled on risks for smokingGet LDCTShe does c/o occasional SOB and TUCKER Chronic ob structive pulmonary disease 67140081 J44.9 628334443 On albuterol as neededHx of smokingAdv ised to quit!Agree able to see pulmonary Pain of hip region 22268 002 M25.552 532098 Needs to see ortho Pain of left heel 309498 8637 615660 M79.672 63996690 Get a referral to podiatry Erythrocytosis 991760755 D75.1 37721 Hx of smokingWil l need to see hematology Gastritis 0492830 K29.70 58936302 get EGDNow referred to Dr Guajardo Health Concerns Section Related Observation LastModified by Organization Detai ls LastModified Time None Recorded Concern Status LastModified by Organization Details LastModified Time None Recorded Advance Directives Directive None Recorded Payers Insurance Date Sequence Insurance Name Policy Number Policy Zhang Covered Member ID Zhang Member ID Guarantor Name 03/11/[address] [facility] (MEDICARE REPLACEMENT/A DVANTAGE - HMO) [id number] Lexis Velazco [id number] Lexis Velazco Notes Date Note Type Note Provider Name and Address Organization Details Recorded Time 11/04/2024 text/html OV 11/04/2024: Here to establish care Present Hx:COPDSmokingL hip pain that radiates into the L back and L lower groin area Here to discuss above and to also get labs Damien Hammond MD [address] [facility], [address], [place], [address], [place] [employer] 11/04/2024 10:56:33 03/11/2025 text/html OV 11/04/2024: Here to establish care Present Hx:COPDSmokingL hip pain that radiates into the L back and L lower groin area Here to discuss above and to also get labs OV 03/11/2025: Here for her f/u apt, she is doing well today, here for her MWV also Damien Hammond MD [address] [facility], [facility] [address], [place], [address], [employer] 03/11/2025 16:21:43 OBGyn Episode No OBEpisode recorded.
--- OUTSIDE RECORDS SUMMARY | 2025-04-15 01:01 | XMS_ITS | Continuity of Care Document ---
Author Organization [place] - [facility] [employer] [facility] [address] [place] [address] Care Team Providers Care Leakage Tester Name Role Phone DAMIEN HAMMOND Primary Care Provider [phone] Assessment Encounter Date Assessment Date Assessment LastModified by Organization Details LastModified Time 03/11/2025 03/11/2025 Anibal ER: 11/18/2024: H/H 17.2/51.4 [email or web address] Not available 03/11/2025 11:04:58 Plan of Treatment Reminders Order Date Submit Date Provider Last Modified By Organization Details Last Modified Time Details Appointments Follow Up 15 2025 03:00P Clementina galvin MD Not available Not available Not available Lab lipid panel, serum 2024 025 [facility] (Lab), [address] [place], [address], 03/12/2025 12:04:35 CBC w/ auto diff 2024 025 [facility] (Lab), [address] [place], [address], 03/12/2025 12:04:35 TSH, serum or plasma 2024 025 [facility] (Lab), [address] [place], [address], 03/12/2025 12:04:35 CMP, serum or plasma 2024 [facility] (Lab), [address] [place], [address], 03/12/2025 12:04:35 vitamin D, 25-hydrox y, total, serum 2024 [facility] (Lab), [address] [place], [address], 03/12/2025 12:04:35 Referral pulmonolo gist referral - Please call patient to schedule an appointme nt. Thank you. 2024 025 [email or web address] Hua Holden MD, [address] [place], [address], 03/11/2025 14:26:41 podiatris t referral - Please call patient to schedule an appointme nt. Thank you. 2024 [email or web address] Garfield Byrd DPM, [address] [facility], [address], [place], [address], 03/11/2025 14:26:42 gynecolog ist referral - Please call patient to schedule an appointme nt. Thank you. 2024 025 Kirstin Rudolph MD, [address] [facility] [address], [address], [place], [address], 03/11/2025 14:26:41 hematolog ist referral 2024 [facility], [address], [place], [address], 03/13/2025 12:11:37 orthopedi c surgeon referral - Please call patient to schedule an appointme nt. Thank you. 2024 025 [email or web address] Heber Krishna MD, [address] [facility], [address], [place], [address], 03/11/2025 14:26:41 Procedures upper endoscopy procedure (EGD) (PROC) 2024 MIGEL Casas as , [address], [address], [place], [address], 03/25/2025 10:31:02 colonosco py screening (PROC) - Please call patient to schedule an appointme nt. Thank you. [address] [place] [address] Felice Casas as , [address], [address], [place], [address], 03/25/2025 10:20:20 Surgeries None recorded. Imaging MAMMO, screening , digital, bilateral - Please call patient to schedule. [address] ([facility]), [address] [place], [address], 03/11/2025 12:18:53 CT, chest, w/o contrast [address] ([facility]), [address] [place], [address], 03/11/2025 12:19:53 DEXA, axial skeleton - Please call patient to schedule. [address] ([facility]), [address] [place], [address], 03/11/2025 12:19:21 Medication Orders albuterol sulf 90 mcg/actua tion breath activated powder inhaler,s ensor 2024 [id number], [address] [facility], [place], [place], [phone], 03/11/2025 11:21:09 Patient TargetsNo targets recorded. Patient Instructions Encounter Date Encounter Id Patient Instructions Last Modified By Organization Details Last Modified Time 03/11/2025 [id number] dementia rating scale-2* [email or web address] Not available 03/12/2025 08:14:24 multi-dimensiona l health assessment questionnaire* [email or web address] Not available 03/12/2025 08:14:17 care plan* [email or web address] Not available 09/2024 08:14:11 advance directiv es: care instructions [email or web address] 2 Not available 03/11/2025 11:20:20 advance care planning: care instructions [email or web address] 2 Not available 03/11/2025 11:20:20 [place] Advance Directives [email or web address] 2 Not available 03/11/2025 11:20:20 Personalized a lt Plan and Screening Recommendations Advance Directives - Do you have one? No I recommend consulting with an Night Custodian, family member, or friend to assist you. [...] Not available 03/11/2025 12:59:47 Reason for Referral Duplicate Maker Referral for [facility] woman health examination Please call patient to schedule an appointment. Thank you. Referring Physician: Damien Hammond Internal Medicine, Encounter Date: 03/11/2025 Industrial Automation Specialist Referral for C hronic obstructive pulmonary disease Please call patient to schedule an appointment. Thank you. Referring Physician: Damien Hammond Internal Medicine, Encounter Date: 03/11/2025 Orthopedic Surgeon Referral for Pain of hip region Please call patient to schedule an appointment. Thank you. Referring Physician: Damien Hammond Internal Medicine, Encounter Date: 03/11/2025 Jailer Referral for Pain of left heel Please call patient to schedule an appointment. Thank you. Referring Physician: Damien Hammond Internal Medicine, Encounter Date: 03/11/2025 Sports Intern Referral for Er ythrocytosis Referring Physician: Damien Hammond Internal Medicine, Encounter Date: 03/11/2025 Results Created Date Observation Date Name Description Value Unit Range Abnormal Flag Note LastModifiedBy Organization Detail LastModifiedTime Result Notes None recorded. Problems Name Problem SNOMED Code Status Onset Date Resolution Date Notes Provider Name and Address Organization Details Recorded Time Vitamin D below reference range 286494237 Active 2024 Damien galvin MD [address], [address], [place], [address], [employer] [facility] 11:48:09 Cigarette smoker 51385509 Active 2024 Damien galvin MD [address], [address], [place], [address], [employer] [facility] 10:14:45 Chronic obstructive pulmonary disease 34316046 Active 2024 Damien galvin MD [address], [place], [address], [employer] [facility] 10:15:05 Pain of hip region 65283276 Active 2024 Damien galvin MD [address], [place], [address], [facility] 5 10:30:14 Pain of left heel 7619288163125 109 Active 2024 Damien galvin MD [address], [address] [address], [place], [address], [facility] 10:30:43 Tobacco dependence caused by cigarettes 5815010780853 9107 Active 2024 Stacey Howell, A null, [facility] 15:34:50 Pulmonary emphysema 94690514 Active 2024 Damien galvin MD [address], [address] [address], [place], [address], [facility] [employer] [facility] 11:09:33 Erythrocyto sis 385384479 Active 2024 Damien galvin MD [address], [address] [address], [place], [address], [facility] [employer] [facility] 11:10:12 Gastritis 2853762 Active 2024 Damien galvin MD [address], [address], [address], [facility] [employer] [facility] 11:15:42 Problem Notes None recorded. Procedures Surgical History Date Name Laterality Status Provider Name and Address Organization Details Recorded Time 03/11/20 Medicare Wellness CPT Code, subsequent completed [employer]et[employer] Franklin [facility] 03/05/2025 17:58:47 Brain Surgery completed [facility] [place] [facility] 11/04/2024 10:04:48 dilation and curettage completed [facility] [place] [facility] 11/04/2024 10:05:14 section completed Roxanna Campbell MA [facility] [employer] [facility] 11/04/2024 10:05:27 operation on stomach completed [facility]ulo [facility] 11/04/2024 10:05:50 hysterectomy completed [facility]oxanna Campbell [facility] 11/04/2024 10:06:30 Imaging Results None recorded. Procedure Notes None recorded. Medical Equipment None Reported. Allergies Allergen ID Allergen Name Allergen Category Reaction Reaction Severity Criticality Documentation Date Start Date Code Code System Note Provider Name and Address Organization Details Recorded Time 48449 adhesive tape environme nt,medica tion rash moderate low 11/04/2024 Roxanna Campbell MA null, [facility] 09:59:45 99438 metoclopr amide Not available Not available Not available Not available 03/26/20252010 6915 RxNorm dysto mayra Not Available [employer] [facility] [employer] 12:10:49 72381 tramadol medicatio n Not available Not available high 03/26/20252010 41889 RxNorm Not Available [employer] [facility] [employer] 12:10:49 Medications Name Sig Start Date Stop [...] Last Updated DateTime 167.64 cm 20.8 kg/m2 26507.4 2 g 96.8 [degF] 18 /min 98 % 108 /min 150/80 mm[Hg] Aneta Rigoberto [facility] Center[facility] 11:06:33 Social History Question Answer Notes LastModified by Organizat ion Details LastModified Time Tobacco Smoking Status Current Every Day Smoker CYRIL Angulo, [place] [facility] 11/04/2024 10:03:16 What Is Your Level Of [...] not available 11/04/2024 Where Do You Live? [facility] Information not available 11/04/2024 What Was [...] Many Years Have You Smoked Tobacco? 46 [email or web address] Information not available 11/04/2024 Have You Recently [...] anxious, or unable to sleep at night)? [id number] Information not available 11/04/2024 Family History Relationship [...] ICD10 Code Diagnosis IMO Codes Diagnosis Note [id number] Damien esposito MD [facility] [address] [facility] [address] [place] [address] 03/11/2025 10:29:20 03/11/2025 11:28:49 Adult health examination 248956311 Z00.00 Screening for disorder 697233558 Z13.9 Screening due 330587158 Z13.9 25404534 C-scope: get this done Mammogram: get this doneDEXA: Get this doneWWE: Get this one Get yearly flu shot, can do Tdap if not done, can do Shingrix vaccineCan do prevnar #20 RTC in 3 months, do labs, ER if worse, she is very appreciati ve to this plan of care Screening for malignant neoplasm of colon 273138310 Z12.11 815592 Screening mammography 24 388537 Z12.31 45641510 Postmenopausal state 764 [address] Z78.0 316899 Well woman health examination 269275620 Z01.419 900175 Hyperlipid emia screening 004356992 Z13.220 746474 Get labs Vitamin D below reference range 606226765 R79.89 67664757 Cigarette smoker 9197129 7 F17.210 372946 Advised to quit! counselled on risks for smokingGet LDCTShe does c/o occasional SOB and TUCKER Chronic ob structive pulmonary disease 59893226 J44.9 261998610 On albuterol as neededHx of smokingAdv ised to quit!Agree able to see pulmonary Pain of hip region 96460 002 M25.552 998492 Needs to see ortho Pain of left heel 203460 3054 623007 M79.672 85503542 Get a referral to podiatry Erythrocytosis 882472403 D75.1 88713 Hx of smokingWil l need to see hematology Gastritis 4015903 K29.70 17201580 get EGDNow referred to Dr Guajardo Health Concerns Section Related Observation LastModified by Organization Detai ls LastModified Time None Recorded Concern Status LastModified by Organization Details LastModified Time None Recorded Payers Encounter Date Sequence Insurance Name Policy Number Policy Zhang Covered Member ID Zhang Member ID Guarantor Name 03/11/2025 1 [facility] (MEDICARE REPLACEMENT/A DVANTAGE - HMO) [id number] Lexis Velazco [id number] Lexis Velazco Notes Date Note Type Note Provider Name and Address Organization Details Recorded Time 03/11/2025 text/html OV 11/04/2024: Here to establish care Present Hx:COPDSmokingL hip pain that radiates into the L back and L lower groin area Here to discuss above and to also get labs OV 03/11/2025: Here for her f/u apt, she is doing well today, here for her MWV also Damien Hammond MD [address] [facility] [facility] [address], [place], [address], [place] [email or web address] 03/11/2025 16:21:43 OBGyn Episode No OBEpisode recorded.
--- OUTSIDE RECORDS SUMMARY | 2025-04-15 01:01 | XMS_ITS | Clinical Summary ---
Author Organization [facility] Address [address] [place] [address] Care Team Providers Care Veterinary Laboratory Technician Name Role Phone Damien Perez MD Primary Care Provider Encounters Date Type Department Care Team Description 01/14/2025 2:51 PM CDT - 01/14/2025 11:59 PM CDT Hospital Encounter [facility] [address] [place] [address] Damien Perez MD Discharge Disposition: Home or Self Care (Routine Discharge) 01/14/2025 Travel from Last 3 Months Social History Tobacco Use Types Packs/Day Years Used Date Smoking Tobacco: Never Assessed Comments Unknown Sex and Gender Information Value Date Recorded Sex Assigned at Female 01/02/2025 9:48 AM CDT Legal Sex Female 9:48 AM CDT Gender Identity Female 01/14/2025 11:40 AM CDT Sexual Orientation Straight 01/14/2025 11 :40 AM CDT Plan of Treatment Health Maintenance Due Date Last Done Comments Cervical Cancer Screening Pa p Smear (Age 30 to 64) Every 3 Years 1967 Colorectal Cancer Screening Colonoscopy (10 Years) 1967 Annual Physical 08/12/1970 Hepatitis C 08/12/1985 DTaP, Tdap and Td Vaccines ( 1 - Tdap) 08/12/1986 Hepatitis B Vaccines (1 of 3 - 19+ 3-dose series) 08/12/1986 Cervical Cancer Screening Pa p with HPV Testing (Age 30 to 64) Every 5 Years 08/12/1997 Cervical Cancer Screening with HPV 08/12/1997 Mammogram Screening 2007 Pneumococcal Vaccine: 50+ Ye ars (1 of 1 - PCV) 08/12/2017 Zoster Vaccines (1 of 2) 08/12/2017 COVID-19 Vaccine (1 - 2024-2 6 season) 2025 Influenza Adult (#1) 2025 Hepatitis A Vaccines Aged Out No long er eligible based on patient's age to complete this topic Meningococcal B Vaccine Aged Out No l onger eligible based on patient's age to complete this topic Meningococcal Vaccine Aged Out No dian leslye eligible based on patient's age to complete this topic RSV Immunizations Under 20 Months Aged Out No longer eligible based on patient's age to complete this topic Procedures Procedure Name Priority Date/Time Associated Diagnosis Comments CT CHEST WO CON Routine 01/14/2025 3:06 PM CDT Nicotine dependence, cigarettes, uncomplicated from Last 3 Months Results * CT CHEST WO CON (01/14/2025 3:06 PM CDT) Anatomical Region Laterality Modality Chest Computed Tomogra phy 01/24/2025 2:45 PM CDT Impressions 01/24/2025 2:48 PM CDT IMPRESSION: 1. No worrisome lung nodule or mass. 2. Moderate to severe COPD with areas of scarring and areas that could be very mild form of smoking-related fibrosis. Referred By: DAMIEN PEREZ Interpreted By: Kenn Mac MD, 01/24/2025 2:45 PM Narrative 01/24/2025 2:48 PM CDT [address] [address] EXAMINATION: CT Chest INDICATION: sob. pt has been smoking since age 13. dx Asthma. NICOTINE DEPENDENCE, CIGARETTES, UNCOMPLICATED COMPARISON(S): None. TECHNIQUE: CT acquisition of the chest. Coronal and sagittal reformatted images along with an axial MIP provided from the source data. Coronal and sagittal reformatted images were obtained from the source data. A dose lowering technique was utilized for this procedure which may include but is not limited to dose reduction techniques, automated exposure control, and/or the use of iterative reconstruction in accordance with ALARA principle. Contrast: No intravenous contrast. FINDINGS: Aortic wall and arterial calcifications. Old granulomatous calcifications. Small liver cyst. Cholecystectomy. Degenerative changes in the bony structures. COPD and scarring; with mild mosaic aeration and could be smoking-related very mild form of pulmonary fibrosis. No worrisome lung nodule or mass. No pneumonia or edema. No effusions or pneumothorax. No adenopathy or mass. Airways are clear. Procedure Note Kenn Mac MD - 01/24/2025 [address] [place] [address] EXAMINATION: CT Chest INDICATION: sob. pt has been smoking since age 13. dx Asthma. NICOTINE DEPENDENCE, CIGARETTES, UNCOMPLICATED COMPARISON(S): None. TECHNIQUE: CT acquisition of the chest. Coronal and sagittal reformattedimages along with an axial MIP provided from the source data. Coronal andsagittal reformatted images were obtained from the source data. A doselowering technique was utilized for this procedure which may include butis not limited to dose reduction techniques, automated exposure control,and/or the use of iterative reconstruction in accordance with ALARAprinciple. Contrast: No intravenous contrast. FINDINGS: Aortic wall and arterial calcifications. Old granulomatouscalcifications. Small liver cyst. Cholecystectomy. Degenerative changesin the bony structures. COPD and scarring; with mild mosaic aeration andcould be smoking-related very mild form of pulmonary fibrosis. Noworrisome lung nodule or mass. No pneumonia or edema. No effusions orpneumothorax. No adenopathy or mass. Airways are clear. IMPRESSION: 1. No worrisome lung nodule or mass. 2. Moderate to severe COPD with areas of scarring and areas that could bevery mild form of smoking-related fibrosis. Referred By: DAMIEN PEREZ Interpreted By: Kenn Mac MD, 01/24/2025 2:45 PM us Damien Perez MD CT Final R esult from Last 3 Months Insurance [facility] MEDICARE MEDICAID Care Teams Veterinary Laboratory Technician Relationship Specialty Start Date End Date Damien Perez MD [address] [address] PCP - General 01/14/25
[2025-04-15 10:46] VITALS: BP 101/69; PULSE 67; RESP 16; TEMP 36.8; O2SAT 99; BMI 20.2
[2025-04-15] MEDS: LACTATED RINGERS 1,000 ML 150 ML IV CONT (11:19)
--- NOTE | 2025-04-15 11:19 | SUR.PREOP ---
notified that pt stated to have one peach ring at 1600 yesterday. pt stated to have yellow loose stools. okay to proceed with procedure.
--- NOTE | 2025-04-15 11:37 | P.HP_ITS ---
H&P: HPI History of Present Illness Date/Time: 04/15/25 11:37 Chief Complaint: GERD, screening for colorectal cancer Narrative: 59 yo woman presents for EGD and Colonoscopy. She has been experiencing occasional dysphagia and heartburn. She also says she has a hx of Crohn's and diverticulitis but has never had a colonoscopy before. She doesn't know how Crohn's was diagnosed. She denies hematochezia or melena. Denies fam hx colon cancer. Review of Systems Review of Systems: All systems reviewed & are unremarkable except as noted in HPI and below Constitutional: Constitutional: Denies chills, Denies fever(s), Denies headache(s) and Denies weight loss Eyes: Eyes: Denies change in vision ENT: Denies dizziness, Denies headache(s), Denies neck mass and Denies throat swelling Cardiovascular: Cardiovascular: Denies chest pain, Denies lightheadedness and Denies dyspnea Respiratory: Respiratory: Denies cough, Denies dyspnea and Denies wheezing Gastrointestinal: Gastrointestinal: Denies abdominal pain, Denies change in bowel habits, Denies nausea and Denies vomiting Genitourinary: Genitourinary: Denies hematuria and Denies dysuria Musculoskeletal: Musculoskeletal: Reports as per HPI Integumentary/Breasts: Skin/Breast: Reports as per HPI Neurologic: Denies dizziness and Denies headache(s) Allergic/Immunologic: Allergic/Immunologic: Denies throat swelling and Denies wheezing [facility] Social History Social History Smoking packs per day: 1 Smoking cigarettes per day: 20.0 Years smoked: 40 Smoking pack-years: 40.00 Smoking status: Current every day smoker Tobacco type: cigarettes Substance use type: does not use Living arrangements: alone Meds Home Medications and Allergies Home Medications ?Medication ?Instructions ?Recorded ?Confirmed ?Type No Home Medications 03/25/25 04/15/25 H istory Allergies Allergy/AdvReac Type Severity Reaction Status Date / Time adhesive tape Allergy Rash Verified 04/15/25 10:54 Vital Signs Vital Signs - 24 hr 04/15/25 10:46 Temperature 98.2 F Pulse Rate 67 Respiratory Rate 16 Blood Pressure 101/69 Pulse Oximetry 99 Oxygen Delivery Room Air Exam Const: General: no acute distress and alert Orientation/consciousness: patient oriented x3 HENMT: Head: normocephalic and atraumatic Ears: hearing grossly normal bilaterally Face/Nose/Sinus: Normal nares present Mouth: Yes Normal oral and palatal mucosa present Eyes: Periorbital: periorbital findings normal Sclera: sclerae normal EOM: EOMs intact bilaterally Neck: Neck: normal visual inspection, no lymphadenopathy and trachea midline Chest: Chest palpation & inspection: normal inspection of the chest Resp: Effort & Inspection: normal respiratory effort Auscultation: clear to auscultation bilaterally Cardio: Jugular venous distension: no JVD Rate: regular rate Rhythm: regular rhythm Heart sounds: S1 normal heart sound present and S2 normal heart sound present Peripheral pulses: Peripheral pulses 2+ throughout GI: Inspection: normal to inspection GI Palp: Yes Soft to palpation, No Tenderness to palpation present (GI), No Guarding due to palpation present (GI) and No Rebound tenderness present Percussion: Yes normal to percussion Auscultation: normal bowel sounds : General: Yes no CVA tenderness Back/Spine/Pelvis: Back: no CVA tenderness Neuro: General: patient oriented x3, no focal motor deficits and CN's II-XI intact bilaterally Cognition (Neuro): normal cognition Speech: normal speech Motor exam (neuro): 5/5 motor strength present throughout Extrem: General: capillary refill normal and no clubbing, cyanosis or edema Assessment and Plan Assessment and plan (1) GERD (gastroesophageal reflux disease): Code(s): K21.9 - Gastro-esophageal reflux disease without esophagitis Status: Acute Assessment and Plan: I have recommended EGD and colonoscopy. I have discussed the procedure, risks, benefits, and alternatives. Questions were answered. Patient is agr eeable to proceed. (2) Screening for colorectal cancer: Code(s): Z12.11 - Encounter for screening for malignant neoplasm of colon; Z12.12 - Encou nter for screening for malignant neoplasm of rectum Status: Acute
--- NOTE | 2025-04-15 11:43 | P.PNAN_ITS ---
Anes - Initial Pre Proc Eval Procedure: Operation Date: 04/15/25 12:30 Proposed Procedures p EGD & Screening Colonoscopy - Parish Muse DO Date/Time: 04/15/25 11:43 Surgeon: Parish Muse DO Pre Op Diagnosis: Neoplasm screening/gastritis Patient Data Age: 59 Gender: F Height: 1.68 m Weight: 57 kg Last Vital Signs Temp 36.8 C 04/15/25 10:46 Pulse 67 04/15/25 10:46 Resp 16 04/15/25 10:46 BP 101/69 04/15/25 10:46 Pulse Ox 99 04/15/25 10:46 O2 Del Method Room Air 04/15/25 10:46 Allergies Allergy/AdvReac Type Severity Reaction Status Date / Time adhesive tape Allergy Rash Verified 04/15/25 10:54 Home Medications ?Medication ?Instructions ?Recorded ?Confirmed ?Type No Home Medications 03/25/25 04/15/25 H istory Patient hx anesthesia problems: none Family hx anesthesia problems: none Results Review: All pre-operative results and documents have been reviewed as part of the pre- operative evaluation. [facility] Past Medical History Medical History (Updated 04/15/25 @ 11:44 by Ronni Carrera MD) Seizure COPD (chronic obstructive pulmonary disease) Social History Social History Smoking packs per day: 1 Smoking cigarettes per day: 20.0 Years smoked: 40 Smoking pack-years: 40.00 Smoking status: Current every day smoker Tobacco type: cigarettes Substance use type: does not use Living arrangements: alone Anes - Eval Final PreProcedure Day of Procedure 04/15/25 11:43 Patient weight: normal Heart: regular rate and rhythm Lungs: clear to auscultation Airway: Mallampati scale class II Neurological: alert and oriented Last oral intake: >/= 8 hours ASA classification: III Emergent: no Anesthetic plan: proceed Anesthesia type and monitoring: general GIVS and standard monitoring Results Review: All pre-operative results and documents have been reviewed as part of the pre- operative evaluation. Informed Consent: The patient's anesthetic plan and its attendant risks and benefits were discussed with the patient/family/POA. Questions were solicited and answers provided to the satisfaction of the patient/family/POA.
--- NOTE | 2025-04-15 12:10 | S_PTH ---
PATIENT: Lexis Velazco LOC: [facility] Zhong#:[id number] AGE/SX: 59/F ROOM: RE04/15/[address]: Parish Muse DO : 1965 BED: DIS: 04/15/2025 SPEC #: [id number] RECD: 04/15/25 13:03 STATUS: CARIDAD RESara #: [id number] DHARMESH: 04/15/25 12:[address]: Parish Muse DEPT: [facility] Surgical RECD BY: Nicole Dailey MLT, ([facility]) ENTERED: 04/15/25 13:03 SP TYPE: Surgical OTHR DR: Damien Hammond, Tissues: A - Esophageal Biopsy B - Colon Polypectomy C - Colon Polypectomy D - Colon Biopsy Procedures: Hematoxylin and Eosin Stain Gross and Microscopic Level 4
--- NOTE | 2025-04-15 12:16 | SUR.OPER ---
egd ended at 1211 and colonoscopy started at 1216. \
[2025-04-15 12:39] VITALS: BP 104/64; PULSE 76; RESP 13; O2SAT 99
[2025-04-15 12:49] VITALS: BP 107/73; PULSE 79; RESP 20; O2SAT 100
[2025-04-15 12:59] VITALS: BP 107/76; PULSE 80; RESP 18; O2SAT 100
[2025-04-15 13:23] LABS: HPYLORIRESULT Negative (Negative)
== END 2025-04-15 13:26 | disposition home or self-care (01) ==
PROVIDERS: PCP Internal Medicine; Visit Provider Surgery
PROC: 0DJ08ZZ Inspection of Upper Intestinal Tract, Via Natural or Artificial Opening Endoscopic (ICD-10-PCS; CPT 45378; principal; 2025-04-15 12:30)
DX: Z12.11 Encounter for screening for malignant neoplasm of colon (principal); D12.5 Benign neoplasm of sigmoid colon; K62.1 Rectal polyp; K57.30 Diverticulosis of large intestine without perforation or abscess without bleeding; K21.00 Gastro-esophageal reflux disease with esophagitis, without bleeding; K44.9 Diaphragmatic hernia without obstruction or gangrene; J44.9 Chronic obstructive pulmonary disease, unspecified; R56.9 Unspecified convulsions; F17.210 Nicotine dependence, cigarettes, uncomplicated
CPT/HCPCS: 43239; 45380; 87081; 88305; J2704; J7120